=== PATIENT | male | born 1995 | race African-American/Black ===

== ENCOUNTER 2019-03-29 06:44 | Emergency (ER) | payer OTHER, SELFPAY ==
[2019-03-29 07:25] VITALS: BP 137/73; TEMP 97.8; O2SAT 100
--- NOTE | 2019-03-29 07:31 | ER ---
Nurse's Notes [facility] Name: Erickson Dutton Age: 24 yrs Sex: Male : 1995 Arrival Date: 03/29/2019 Time: 06:46 Bed 23 Private MD: Diagnosis: Conjunctivitis Presentation: 03/29 06:57 Presenting complaint: Patient states: eyes watering and itching for 4 days, getting dm5 worse. Tried red eye drops but they are not working. Transition of care: patient was not received from another setting of care. Onset of symptoms was March 25, 2019. Risk Assessment: Do you want to hurt yourself or someone else? Patient reports no desire to harm self or others. Initial Sepsis Screen: Does the patient meet any 2 criteria? No. Patient's initial sepsis screen is negative. Does the patient have a suspected source of infection? No. Patient's initial sepsis screen is negative. Care prior to arrival: None. 06:57 Method Of Arrival: Ambulatory dm5 06:57 Acuity: BRIGHT 4 dm5 Historical: - Allergies: 06:59 No Known Allergies; dm5 - Home Meds: 06:59 None [Active]; dm5 - PMHx: 06:59 None; dm5 - PSHx: 06:59 None; dm5 - Immunization history:: Adult Immunizations up to date. - Social history:: Smoking status: Patient/guardian denies using tobacco. - Ebola Screening: : Patient denies exposure to infectious person Patient denies travel to an Ebola-affected area in the 21 days before illness onset. Screenin:00 Abuse screen: Denies threats or abuse. Denies injuries from another. Nutritional ss screening: No deficits noted. Tuberculosis screening: Never had TB. Fall Risk None identified. Assessment: 07:00 General: Appears in no apparent distress. Pain: Complains of pain in right eye and left ss eye Pain currently is 5 out of 10 on a pain scale. Neuro: Level of Consciousness is awake, alert, obeys commands, Oriented to person, place, time, situation. Cardiovascular: Capillary refill < 3 seconds is brisk in bilateral fingers Patient's skin is warm and dry. Respiratory: Airway is patent Respiratory effort is even, unlabored, Respiratory pattern is regular, symmetrical. EENT: sclera reddened bilaterally as well as purulent drainage. . Derm: Skin is intact, is healthy with good turgor, Skin is dry, Skin is pink, warm \T\ dry. normal. Musculoskeletal: Circulation, motion, and sensation intact. Range of motion: intact in all extremities. Vital Signs: 06:59 BP 137 / 73; Pulse 78; Resp 16; Temp 97.8(O); Pulse Ox 100% on R/A; Weight 104.33 kg; dm5 Height 5 ft. 9 in. (175.26 cm); Pain 5/10; 06:59 Body Mass Index 33.96 (104.33 kg, 175.26 cm) dm5 ED Course: 06:46 Patient arrived in ED. ds1 06:56 [facility] jr8 06:56 Jesus Eagle MD is Attending Physician. jr8 06:58 Triage completed. dm5 06:59 Arm band placed on right wrist. dm5 07:00 Patient has correct armband on for positive identification. Bed in low position. Call ss light in reach. 07:04 Murtaza Farmer MD is Referral Physician. jr8 07:13 Sondra Johns, FRANKO is Primary Nurse. ss 07:13 No provider procedures requiring assistance completed. Patient did not have IV access ss during this emergency room visit. Administered Medications: No medications were administered Outcome: 07:05 Discharge ordered by . jr8 07:13 Discharged to home ambulatory. ss 07:13 Condition: good 07:13 Discharge instructions given to patient, family, Instructed on discharge instructions, follow up and referral plans. medication usage, Demonstrated understanding of instructions, follow-up care, medications, Prescriptions given X 1. 07:18 Patient left the ED. ss Signatures: Rosa Shaver, RN RN dm5 Hanh Gonzalez ds1 Sondra Johns RN RN iMno Addison PA PA jr8
--- NOTE | 2019-03-29 07:32 | EDPHYS ---
Physician Documentation [facility] Name: Erickson Dutton Age: 24 yrs Sex: Male : 1995 Arrival Date: 03/29/2019 Time: 06:46 Bed 23 Private MD: ED Physician Jesus Eagle HPI: 03/29 07:01 This 24 yrs old Black Male presents to ER via Ambulatory with complaints of Redness of jr8 Eye - Itching. 07:01 The patient is experiencing matting or discharge, pain, redness, tearing. Onset: The jr8 symptoms/episode began/occurred acutely, 4 day(s) ago. Duration: the symptoms are continuous. Aggravated by opening eye, rubbing, Alleviated by nothing. Associated signs and symptoms: Pertinent positives: None. Patient does not utilize any form of vision correction. Severity of symptoms: At their worst the symptoms were mild in the emergency department the symptoms are unchanged. The patient has not experienced similar symptoms in the past. The patient has not recently seen a physician. Stated that he started with left eye problems and now has moved to right eye. Has been doing OTC drops but not getting any better . Historical: - Allergies: 06:59 No Known Allergies; dm5 - Home Meds: 06:59 None [Active]; dm5 - PMHx: 06:59 None; dm5 - PSHx: 06:59 None; dm5 - Immunization history:: Adult Immunizations up to date. - Social history:: Smoking status: Patient/guardian denies using tobacco. - Ebola Screening: : Patient denies exposure to infectious person Patient denies travel to an Ebola-affected area in the 21 days before illness onset. ROS: 07:01 ENT: Negative for injury, pain, and discharge, Neck: Negative for injury, pain, and jr8 swelling, Cardiovascular: Negative for chest pain, palpitations, and edema, Respiratory: Negative for shortness of breath, cough, wheezing, and pleuritic chest pain, Abdomen/GI: Negative for abdominal pain, nausea, vomiting, diarrhea, and constipation, Back: Negative for injury and pain, MS/Extremity: Negative for injury and deformity, Skin: Negative for injury, rash, and discoloration, Neuro: Negative for headache, weakness, numbness, tingling, and seizure. 07:01 Eyes: Positive for itching, matting, pain, redness, tearing. Exam: 07:01 Visual Acuity: Visual acuity is within normal limits. jr8 07:01 Head/Face: Normocephalic, atraumatic. ENT: Nares patent. No nasal discharge, no septal abnormalities noted. Tympanic membranes are normal and external auditory canals are clear. Oropharynx with no redness, swelling, or masses, exudates, or evidence of obstruction, uvula midline. Mucous membranes moist. Neck: Trachea midline, no thyromegaly or masses palpated, and no cervical lymphadenopathy. Supple, full range of motion without nuchal rigidity, or vertebral point tenderness. No Meningismus. Cardiovascular: Regular rate and rhythm with a normal S1 and S2. No gallops, murmurs, or rubs. Normal PMI, no JVD. No pulse deficits. Respiratory: Lungs have equal breath sounds bilaterally, clear to auscultation and percussion. No rales, rhonchi or wheezes noted. No increased work of breathing, no retractions or nasal flaring. Abdomen/GI: Soft, non-tender, with normal bowel sounds. No distension or tympany. No guarding or rebound. No evidence of tenderness throughout. Skin: Warm, dry with normal turgor. Normal color with no rashes, no lesions, and no evidence of cellulitis. MS/ Extremity: Pulses equal, no cyanosis. Neurovascular intact. Full, normal range of motion. Neuro: Awake and alert, GCS 15, oriented to person, place, time, and situation. Cranial nerves II-XII grossly intact. Motor strength 5/5 in all extremities. Sensory grossly intact. Cerebellar exam normal. Normal gait. 07:01 Eyes: Periorbital structures: appear normal, Pupils: equal, round, and reactive to light and accomodation, Extraocular movements: intact throughout, Conjunctiva: injected, bilaterally, tearing noted, bilaterally, Corneas: are normal, Sclera: no appreciated abnormality, Anterior chamber: normal, Lids and lashes: appear normal. Vital Signs: 06:59 BP 137 / 73; Pulse 78; Resp 16; Temp 97.8(O); Pulse Ox 100% on R/A; Weight 104.33 kg; dm5 Height 5 ft. 9 in. (175.26 cm); Pain 5/10; 06:59 Body Mass Index 33.96 (104.33 kg, 175.26 cm) dm5 MDM: 06:56 Patient medically screened. jr8 07:01 Data reviewed: vital signs, nurses notes, and as a result, I will discharge patient. jr8 Data interpreted: Pulse oximetry: on room air is 100 %. Interpretation: normal. Counseling: I had a detailed discussion with the patient and/or guardian regarding: the historical points, exam findings, and any diagnostic results supporting the discharge/admit diagnosis, the need for outpatient follow up, an opthalmologist, to return to the emergency department if symptoms worsen or persist or if there are any questions or concerns that arise at home. Administered Medications: No medications were administered Disposition: 03/29/19 07:05 Discharged to Home. Impression: Conjunctivitis. - Condition is Stable. - Discharge Instructions: Bacterial Conjunctivitis, Viral Conjunctivitis. - Prescriptions for Gentamicin 0.3 % Ophthalmic Drops - instill 2 drops by OPHTHALMIC route every 4 hours for 7 days Both eyes; 1 bottle. - Medication Reconciliation Form, Thank You Letter, Antibiotic Education, Prescription Opioid Use form. - Follow up: Murtaza Farmer MD; When: As needed; Reason: Recheck today's complaints, Continuance of care, Re-evaluation by your physician. - Problem is new. - Symptoms are unchanged. Signatures: Rosa Shaver RN RN dm5 Sondra Johns RN RN ss Mino Addison PA PA jr8 Corrections: (The following items were deleted from the chart) 07:18 07:05 03/29/2019 07:05 Discharged to Home. Impression: Conjunctivitis. Condition is ss Stable. Forms are Medication Reconciliation Form, Thank You Letter, Antibiotic Education, Prescription Opioid Use. Follow up: Murtaza Farmer; When: As needed; Reason: Recheck today's complaints, Continuance of care, Re-evaluation by your physician. Problem is new. Symptoms are unchanged. jr8
== END 2019-03-29 07:18 | disposition home or self-care (01) ==
LOC: ER 06:44
DX: H10.9 Unspecified conjunctivitis (principal)
CPT/HCPCS: 99282

== ENCOUNTER 2019-10-31 13:50 | Emergency (ER) | payer SELFPAY ==
--- NOTE | 2019-10-31 14:37 | ER ---
Nurse's Notes [facility] Name: Erickson Dutton Age: 24 yrs Sex: Male : 1995 Arrival Date: 10/31/2019 Time: 13:52 Bed 26 Private MD: Diagnosis: Upper abdominal pain, unspecified;Unspecified abdominal pain Presentation: 10/30 13:57 Chief complaint: Patient states: "I just feel like I may have a stomach bug or aa5 something, I work out and I take apple cider vinegar but 2 days ago I started with some belly pain". Pt denies diarrhea, reports vomited once. 13:57 Coronavirus screen: Client denies travel out of the [place] in the last 14 days. At this aa5 time, the client does not indicate any symptoms associated with coronavirus-19. Ebola Screen: Patient negative for fever greater than or equal to 101.5 degrees Fahrenheit, and additional compatible Ebola Virus Disease symptoms. Initial Sepsis Screen: Does the patient meet any 2 criteria? No. Patient's initial sepsis screen is negative. Does the patient have a suspected source of infection? No. Patient's initial sepsis screen is negative. Risk Assessment: Do you want to hurt yourself or someone else? Patient reports no desire to harm self or others. Onset of symptoms was October 2019. 13:57 Method Of Arrival: Ambulatory aa5 13:57 Acuity: BRIGHT 3 aa5 Triage Assessment: 14:00 General: Appears in no apparent distress. comfortable, Behavior is calm, cooperative. ls4 14:00 Pain: Complains of pain in epigastric area Pain currently is 4 out of 10 on a pain ls4 scale. Neuro: No deficits noted. Cardiovascular: No deficits noted. Respiratory: No deficits noted. GI: No deficits noted. No signs and/or symptoms were reported involving the gastrointestinal system. : No deficits noted. No signs and/or symptoms were reported regarding the genitourinary system. Derm: No deficits noted. No signs and/or symptoms reported regarding the dermatologic system. Musculoskeletal: No deficits noted. No signs and/or symptoms reported regarding the musculoskeletal system. Historical: - Allergies: 14:00 No Known Allergies; aa5 - Home Meds: 14:00 None [Active]; aa5 - PMHx: 14:00 None; aa5 - PSHx: 14:00 None; aa5 - Family history:: not pertinent. - Hospitalizations: : No recent hospitalization is reported. Screenin:00 Abuse screen: Denies threats or abuse. Denies injuries from another. ls4 14:00 Nutritional screening: No deficits noted. Tuberculosis screening: No symptoms or risk ls4 factors identified. Fall Risk None identified. Assessment: 15:12 Neuro: Level of Consciousness is awake, alert, obeys commands, Oriented to person, aa5 place, time, situation. Respiratory: Airway is patent Respiratory effort is even, unlabored, Respiratory pattern is regular, symmetrical. Derm: Skin is dry, Skin is normal, Skin temperature is warm. 15:51 GI: Bowel sounds present X 4 quads. Abd is soft and non tender X 4 quads. GI: Reports ls4 epigastric pain. Vital Signs: 13:57 BP 137 / 89; Pulse 74; Resp 16 S; Temp 98.4(O); Pulse Ox 98% on R/A; Weight 99.79 kg aa5 (R); Height 5 ft. 9 in. (175.26 cm) (R); Pain 0/10; 15:02 BP 128 / 74; Pulse 70; Resp 16; Temp 98.4(O); Pulse Ox 99% on R/A; Pain 0/10; ls4 13:57 Body Mass Index 32.49 (99.79 kg, 175.26 cm) aa5 ED Course: 13:52 Patient arrived in ED. as 13:57 Sandie Fernandes, RN is Primary Nurse. ls4 14:00 No apparent distress. ls4 14:00 Arm band placed on Patient placed in an exam room, on a stretcher. aa5 14:00 Patient has correct armband on for positive identification. Bed in low position. Call ls4 light in reach. Side rails up X 1. Pulse ox on. NIBP on. Verbal reassurance given. 14:00 No provider procedures requiring assistance completed. Patient did not have IV access ls4 during this emergency room visit. Patient maintains SpO2 saturation greater than 95% on room air. 14:13 Chris Noel MD is Attending Physician. rn 14:21 Triage completed. aa5 Administered Medications: No medications were administered Outcome: 14:36 Discharge ordered by . rn 15:12 Discharged to home ambulatory. aa5 15:12 Condition: good 15:12 Discharge instructions given to patient, Instructed on discharge instructions, follow up and referral plans. Demonstrated understanding of instructions, follow-up care. 15:14 Patient left the ED. aa5 Signatures: Olya Gillespie Roman, MD MD rn Ainsley Webster RN RN aa5 Sandie Fernandes RN RN ls4
--- NOTE | 2019-10-31 14:37 | EDPHYS ---
Physician Documentation [facility] Name: Erickson Dutton Age: 24 yrs Sex: Male : 1995 Arrival Date: 10/31/2019 Time: 13:52 Bed 26 Private MD: ED Physician Chris Noel HPI: 10/30 14:27 This 24 yrs old Black Male presents to ER via Ambulatory with complaints of Abdominal rn Problem. 14:27 The patient presents with abdominal pain in the epigastric area, in the periumbilical rn area. Onset: The symptoms/episode began/occurred 3 day(s) ago. The symptoms do not radiate. Associated signs and symptoms: Pertinent negatives: blood in stools, chest pain, constipation, diarrhea, dysuria, fever, hematuria, shortness of breath, testicular pain, vomiting. Modifying factors: The symptoms are alleviated by nothing, the symptoms are aggravated by nothing. Severity of pain: At its worst the pain was mild in the emergency department the pain has improved. The patient has not experienced similar symptoms in the past. Reports 3 days of mid and upper abd pain, intermittent, feels dull, reports single episode of vomiting after drinking apple cider vinegar. No fever, appetite good, no trauma, no masses or swelling. No diarrhea or constipation. Reports notices more when works out. . Historical: - Allergies: 14:00 No Known Allergies; aa5 - Home Meds: 14:00 None [Active]; aa5 - PMHx: 14:00 None; aa5 - PSHx: 14:00 None; aa5 - Family history:: not pertinent. - Hospitalizations: : No recent hospitalization is reported. ROS: 14:27 Constitutional: Negative for fever, chills, and weight loss, Eyes: Negative for injury, rn pain, redness, and discharge, Neck: Negative for injury, pain, and swelling, Cardiovascular: Negative for chest pain, palpitations, and edema, Respiratory: Negative for shortness of breath, cough, wheezing, and pleuritic chest pain, Abdomen/GI: Negative for diarrhea, and constipation, Back: Negative for injury and pain, : Negative for injury, bleeding, discharge, and swelling, MS/Extremity: Negative for injury and deformity, Skin: Negative for injury, rash, and discoloration, Neuro: Negative for headache, weakness, numbness, tingling, and seizure. Exam: 14:27 Constitutional: This is a well developed, well nourished patient who is awake, alert, rn and in no acute distress. Head/Face: Normocephalic, atraumatic. Cardiovascular: Regular rate and rhythm. No pulse deficits. Respiratory: No increased work of breathing, no retractions or nasal flaring. Abdomen/GI: soft, non-tender, no masses, neg tavarez, no rebound Skin: Warm, dry MS/ Extremity: Pulses equal, no cyanosis. Neurovascular intact. Full, normal range of motion. Equal circumference. Neuro: Awake and alert, GCS 15 Vital Signs: 13:57 BP 137 / 89; Pulse 74; Resp 16 S; Temp 98.4(O); Pulse Ox 98% on R/A; Weight 99.79 kg aa5 (R); Height 5 ft. 9 in. (175.26 cm) (R); Pain 0/10; 15:02 BP 128 / 74; Pulse 70; Resp 16; Temp 98.4(O); Pulse Ox 99% on R/A; Pain 0/10; ls4 13:57 Body Mass Index 32.49 (99.79 kg, 175.26 cm) aa5 MDM: 14:13 Patient medically screened. rn 14:27 Differential diagnosis: appendicitis, cholecystitis, Cholelithiasis, gastritis, rn gastroesophageal reflux disease, non-specific abd pain, pancreatitis, hernia, strain. Data reviewed: vital signs, nurses notes, and as a result, I will discharge patient. Refusal of service: The patient/guardian displays adequate decision making capability and despite a detailed discussion of alternatives, benefits, risks, and consequences refuses: CT Scan, all lab tests, Medications. ED course: Pt prefers that no labs or imaging be performed, after discussion, understands reasoning for studies but would like to go home and try OTC antacids and reeval his situation. Return precautions given and understood. . Administered Medications: No medications were administered Disposition: 10/31/19 14:36 Discharged to Home. Impression: Upper abdominal pain, unspecified, Unspecified abdominal pain. - Condition is Stable. - Discharge Instructions: Abdominal Pain, Adult. - Medication Reconciliation Form, Thank You Letter, Antibiotic Education, Prescription Opioid Use, Work release form form. - Follow up: Private Physician; When: As needed; Reason: Recheck today's complaints, Re-evaluation by your physician. - Problem is new. - Symptoms have improved. Signatures: Chris Noel MD MD rn Calderon, Audri, RN RN aa5 Corrections: (The following items were deleted from the chart) 15:14 14:36 10/31/2019 14:36 Discharged to Home. Impression: Upper abdominal pain, aa5 unspecified; Unspecified abdominal pain. Condition is Stable. Forms are Medication Reconciliation Form, Thank You Letter, Antibiotic Education, Prescription Opioid Use. Follow up: Private Physician; When: As needed; Reason: Recheck today's complaints, Re-evaluation by your physician. Problem is new. Symptoms have improved. rn
[2019-10-31 15:21] VITALS: BP 137/89; TEMP 98.4; O2SAT 98
== END 2019-10-31 15:14 | disposition home or self-care (01) ==
LOC: ER 13:50
DX: R10.13 Epigastric pain (principal)
CPT/HCPCS: 99284

== ENCOUNTER 2022-07-23 11:06 | Emergency (ER) | payer OTHER, SELFPAY ==
--- OUTSIDE RECORDS SUMMARY | 2022-07-23 11:11 | XMS REPORT | Continuity of Care Document ---
:[address] [facility] t Address [address] [place] [address] Care Team Providers Name Role Phone Unavailable Unavailable Unavailable Payers Payer Name Policy Type Policy Number Effective Date Expiration Date S murphy [facility] [id number] 2022 00:00:00 [employer] Problems This patient has no known problems. Allergies, Adverse Reactions, Alerts This patient has no known allergies or adverse reactions. Medications This patient has no known medications. Procedures This patient has no known procedures. Encounters Start End Encounter Admission Attending Care Care Encounter Source Date/Time Date/Time Type Type Clinicians Facility Department ID 2022-07-21 Outpatient [facility] [id number] [place] 04:05:55 [id number] [facility] 2022-07-08 Outpatient [facility] [id number] [place] 21:01:59 [id number] [facility] 2022-07-06 Outpatient [facility] [id number] [place] 03:47:35 [id number] [facility] 2022-07-05 Outpatient [facility] [id number] [place] 14:14:19 [id number] [facility] 2022-04-16 Outpatient [facility] [id number] [place] 08:10:23 [id number] [facility] 2022-04-12 Outpatient [facility] [id number] [place] 08:07:29 [id number] [facility] 2022-04-26 2022-04-26 Outpatient [facility] [id number] [place] 13:00:00 13:00:00 Health Results This patient has no known results.
[2022-07-23] MEDS ORDERED: IBUPROFEN 400 MG TAB ONE (11:45)
[2022-07-23] MEDS ORDERED: HYDROCODONE/APAP 5/325 MG TAB ONE (11:45)
[2022-07-23] MEDS ORDERED: IBUPROFEN 200 MG TAB PO ONE (11:45)
--- NOTE | 2022-07-23 12:13 | RAD REPORT ---
EXAM DESCRIPTION: RAD - Foot Left 3 View - 07/23/2022 12:08 pm CLINICAL HISTORY: PAIN COMPARISON: No comparisons FINDINGS/IMPRESSION: No acute fracture. No malalignment. No significant focal degenerative changes.
--- NOTE | 2022-07-23 12:31 | ER ---
Nurse's Notes [facility] Name: Erickson Dutton Age: 27 yrs Sex: Male : 1995 Arrival Date: 07/23/2022 Time: 11:06 Bed 9 Private MD: Diagnosis: Contusion of left foot Presentation: 07/23 11:14 Chief complaint: Patient states: L foot/ankle injury. Hit a wall while walking. ll1 Coronavirus screen: Client denies travel out of the [place] in the last 14 days. At this time, the client does not indicate any symptoms associated with coronavirus-19. Ebola Screen: Patient denies travel to an Ebola-affected area in the 21 days before illness onset. Initial Sepsis Screen: Does the patient meet any 2 criteria? No. Patient's initial sepsis screen is negative. Does the patient have a suspected source of infection? No. Patient's initial sepsis screen is negative. Risk Assessment: Do you want to hurt yourself or someone else? Patient reports no desire to harm self or others. Onset of symptoms was July 23, 2022. 11:14 Method Of Arrival: Wheelchair ll1 11:14 Acuity: BRIGHT 4 ll1 Triage Assessment: 12:42 General: Appears in no apparent distress. Injury Description: Bruise. db Historical: - Allergies: 11:16 No Known Allergies; ll1 - PMHx: 11:16 subdural hematoma from head injury; ll1 - PSHx: 11:16 None; ll1 - Immunization history:: Client reports having NOT received the Covid vaccine. - Social history:: Smoking status: Patient denies any tobacco usage or history of. Screenin:42 [facility] ED Fall Risk Assessment (Adult) History of falling in the last 3 months, ph including since admission No falls in past 3 months (0 pts) Confusion or Disorientation No (0 pts) Intoxicated or Sedated No (0 pts) Impaired Gait No (0 pts) Mobility Assist Device Used No (0 pt) Altered Elimination No (0 pt) Score/Fall Risk Level 0 - 2 = Low Risk Oriented to surroundings, Maintained a safe environment, Hourly rounding (assess needs \T\ fall precautionary measures) done. Abuse screen: Denies threats or abuse. Denies injuries from another. Nutritional screening: No deficits noted. Tuberculosis screening: No symptoms or risk factors identified. Assessment: 11:42 General: Appears in no apparent distress. comfortable, Behavior is calm, cooperative, ph appropriate for age. Pain: Complains of pain in dorsum of left foot. Neuro: Bright Agitation-Sedation Scale (RASS): 0 - Alert and Calm Level of Consciousness is awake, alert, obeys commands, Oriented to person, place, time, situation. Cardiovascular: Capillary refill < 3 seconds in bilateral fingers Patient's skin is warm and dry. Respiratory: Airway is patent Respiratory effort is even, unlabored. Derm: Skin is healthy with good turgor, Skin is pink, warm \T\ dry. Musculoskeletal: Circulation, motion, and sensation intact. Range of motion: intact in all extremities. 12:43 Reassessment: Patient appears in no apparent distress at this time. Patient and/or db family updated on plan of care and expected duration. Pain level reassessed. Patient is alert, oriented x 3, equal unlabored respirations, skin warm/dry/pink. Vital Signs: 11:14 BP 148 / 93; Pulse 89; Resp 18; Temp 98.5; Pulse Ox 100% ; Weight 104.33 kg; Height 5 ll1 ft. 9 in. ; Pain 8/10; 12:43 BP 110 / 68; Pulse 88; Resp 16; Pulse Ox 100% on R/A; db 11:14 Body Mass Index 33.97 (104.33 kg, 175.26 cm) ll1 11:14 Pain Scale: Adult ll1 ED Course: 11:11 Patient arrived in ED. mr 11:12 Kelly [facility]. kb 11:12 Chris Noel MD is Attending Physician. kb 11:16 Triage completed. ll1 11:17 Arm band placed on Patient placed in an exam room, on a stretcher. ll1 11:30 Sharon Hurtado, FRANKO is Primary Nurse. ph 11:43 Patient has correct armband on for positive identification. Bed in low position. Call ph light in reach. Side rails up X 1. Pulse ox on. NIBP on. Door closed. Noise minimized. Warm blanket given. Ice pack to injury. 11:43 No provider procedures requiring assistance completed. Patient did not have IV access ph during this emergency room visit. 12:10 Foot Left 3 View XRAY In Process Unspecified. EDMS Administered Medications: 11:41 Drug: Ibuprofen PO 600 mg Route: PO; ph 12:33 Follow up: Response: No adverse reaction ph 11:42 Drug: HYDROcodone-acetaminophen PO 5 mg-325 mg 1 tabs Route: PO; ph 12:33 Follow up: Response: No adverse reaction; Pain is decreased; RASS: Alert and Calm (0) ph Medication: 11:43 VIS not applicable for this client. ph Outcome: 12:30 Discharge ordered by . kb 12:44 Discharged to home ambulatory. db 12:44 Condition: stable 12:44 Discharge instructions given to patient, Instructed on discharge instructions, follow up and referral plans. Prescriptions given X 1. 12:44 Patient left the ED. db Signatures: Dispatcher [employer] EDMS Kelly Jolly, KAMI NAVARROP-Monica Carrion Rena HurtadoSharon, RN RN Mary Liu RN RN ll1 Layla Alexandre RN RN db Corrections: (The following items were deleted from the chart) 11:17 11:14 Pulse 89bpm; Resp 18bpm; Pulse Ox 100%; Temp 98.5F; 104.33 kg; Height 5 ft. 9 ll1 in.; BMI: 33.9; Pain 8/10, Adult; ll1
--- NOTE | 2022-07-23 12:31 | EDPHYS ---
Physician Documentation [facility] Name: Erickson Dutton Age: 27 yrs Sex: Male : 1995 Arrival Date: 07/23/2022 Time: 11:06 Bed 9 Private MD: ED Physician Chris Noel HPI: 07/23 11:21 This 27 yrs old Black Male presents to ER via Wheelchair with complaints of Foot Injury.kb 11:21 The patient presents with pain. The complaints affect the dorsum of left foot. Context: kb The problem was sustained at home, resulted from the patient kicking, furniture, the patient can fully bear weight, the patient is able to ambulate. Onset: The symptoms/episode began/occurred this morning. Modifying factors: The symptoms are alleviated by nothing, the symptoms are aggravated by weight bearing, movement. Associated signs and symptoms: Pertinent positives: swelling, Pertinent negatives: calf tenderness, fever, nausea, numbness, rash, tingling, vomiting, warmth, weakness. Severity of symptoms: At their worst the symptoms were moderate, in the emergency department the symptoms are unchanged. The patient has not experienced similar symptoms in the past. The patient has not recently seen a physician. Historical: - Allergies: 11:16 No Known Allergies; ll1 - PMHx: 11:16 subdural hematoma from head injury; ll1 - PSHx: 11:16 None; ll1 - Immunization history:: Client reports having NOT received the Covid vaccine. - Social history:: Smoking status: Patient denies any tobacco usage or history of. ROS: 11:20 Constitutional: Negative for fever, chills, and weight loss. kb 11:20 MS/extremity: Positive for pain, swelling, tenderness, of the dorsum of left foot. 11:20 All other systems are negative. Exam: 11:20 Constitutional: This is a well developed, well nourished patient who is awake, alert, kb and in no acute distress. Head/Face: Normocephalic, atraumatic. ENT: Moist Mucous membranes Respiratory: Respirations even and unlabored. No increased work of breathing. Talking in full sentences Skin: Warm, dry with normal turgor. Normal color. Neuro: Awake and alert, GCS 15, oriented to person, place, time, and situation. Moves all extremities. Normal gait. 11:20 Musculoskeletal/extremity: Extremities: grossly normal except: noted in the dorsum of left foot: erythema, pain, swelling, ROM: intact in all extremities, Circulation is intact in all extremities. Sensation intact. Vital Signs: 11:14 BP 148 / 93; Pulse 89; Resp 18; Temp 98.5; Pulse Ox 100% ; Weight 104.33 kg; Height 5 ll1 ft. 9 in. ; Pain 8/10; 12:43 BP 110 / 68; Pulse 88; Resp 16; Pulse Ox 100% on R/A; db 11:14 Body Mass Index 33.97 (104.33 kg, 175.26 cm) ll1 11:14 Pain Scale: Adult ll1 MDM: 11:12 Patient medically screened. kb 11:20 Differential diagnosis: closed fracture, contusion. Data reviewed: vital signs, nurses kb notes. 12:28 Counseling: I had a detailed discussion with the patient and/or guardian regarding: the kb historical points, exam findings, and any diagnostic results supporting the discharge/admit diagnosis, radiology results, the need for outpatient follow up, a family practitioner, to return to the emergency department if symptoms worsen or persist or if there are any questions or concerns that arise at home. 07/23 11:15 Order name: Foot Left 3 View XRAY; Complete Time: 12:15 kb Administered Medications: 11:41 Drug: Ibuprofen PO 600 mg Route: PO; ph 12:33 Follow up: Response: No adverse reaction ph 11:42 Drug: HYDROcodone-acetaminophen PO 5 mg-325 mg 1 tabs Route: PO; ph 12:33 Follow up: Response: No adverse reaction; Pain is decreased; RASS: Alert and Calm (0) ph Disposition: 13:25 Co-signature as Attending Physician, Chris Noel MD I reviewed the patient's care rn provided by the Advanced Practice Provider and agree with the diagnosis and treatment plan. Disposition Summary: 07/23/22 12:30 Discharge Ordered Location: Home kb Condition: Stable kb Diagnosis - Contusion of left foot kb Followup: kb - With: Emergency Department - When: As needed - Reason: Worsening of condition Followup: kb - With: Private Physician - When: 2 - 3 days - Reason: Recheck today's complaints, Continuance of care, Re-evaluation by your physician Discharge Instructions: - Discharge Summary Sheet kb - Foot Contusion, [id number] kb Forms: - Medication Reconciliation Form kb - Thank You Letter kb - Antibiotic Education kb - Prescription Opioid Use kb Prescriptions: - Ibuprofen 800 mg Oral Tablet - take 1 tablet by ORAL route every 8 hours As needed take with food; 30 tablet; kb Refills: 0, Product Selection Permitted Signatures: Dispatcher [employer] EDKelly Gerard, OR RN-C OR RN-Chris Nieto MD MD rn Hall, Patricia RN RN Mary Liu RN RN ll1
[2022-07-23 12:49] VITALS: TEMP 98.5; O2SAT 100
[2022-07-23 12:51] VITALS: BP 110/68
== END 2022-07-23 12:44 | disposition home or self-care (01) ==
LOC: ER 11:06
DX: S90.32XA Contusion of left foot, initial encounter (principal)
CPT/HCPCS: 99284